=== PATIENT | male | born 1995 | race Caucasian/White ===

== ENCOUNTER → 2020-05-25 | Outpatient (CLI) | payer OTHER | LOC: HEART 5 09:03 | DX: J98.01 Acute bronchospasm (principal); R94.2 Abnormal results of pulmonary function studies | CPT/HCPCS: 94060 ==

== ENCOUNTER → 2020-05-29 | Outpatient (CLI) | payer OTHER | LOC: KOH-I 08:38 | DX: R74.8 Abnormal levels of other serum enzymes (principal); K76.0 Fatty (change of) liver, not elsewhere classified | CPT/HCPCS: 76705 ==